=== PATIENT | female | born 1950 | race Hispanic/Latino ===

== ENCOUNTER → 2018-04-09 | Outpatient (CLI) | payer OTHER | END | disposition home or self-care (01) | LOC: RAH 09:29 | PROVIDERS: ATTEND Family Medicine | DX: Z12.31 Encounter for screening mammogram for malignant neoplasm of breast (principal) | CPT/HCPCS: 77067 ==

== ENCOUNTER → 2018-09-18 | Outpatient (CLI) | payer OTHER ==
[~2018-09-18] MED LIST: REGADENOSON 0.4 MG/5 ML PF SYG IVP SCH
== END | disposition home or self-care (01) ==
LOC: SHCH 09:03
PROVIDERS: ATTEND Internal Medicine Cardiovascular Disease
DX: R07.9 Chest pain, unspecified (principal)
CPT/HCPCS: 93017; 96374; J2785

== ENCOUNTER → 2019-07-02 | Outpatient (CLI) | payer OTHER | END | disposition home or self-care (01) | LOC: RAH 13:40 | PROVIDERS: ATTEND Family Medicine | DX: N64.4 Mastodynia (principal) | CPT/HCPCS: 77066 ==

== ENCOUNTER → 2020-07-29 | Outpatient (CLI) | payer OTHER | END | disposition home or self-care (01) | LOC: RAH 13:38 | PROVIDERS: ATTEND Family Medicine | DX: Z12.31 Encounter for screening mammogram for malignant neoplasm of breast (principal) | CPT/HCPCS: 77067 ==

== ENCOUNTER → 2021-06-03 | Outpatient (CLI) | payer OTHER ==
[~2021-06-03] VITALS: Ht 154.9 cm; Wt 71.7 kg
[2021-06-03] MEDS: REGADENOSON 0.4 MG/5 ML PF SYG IVP SCH (09:30)
== END | disposition home or self-care (01) ==
LOC: SHCH 08:59
PROVIDERS: ATTEND Internal Medicine Cardiovascular Disease
DX: R06.09 Other forms of dyspnea (principal); R07.9 Chest pain, unspecified; I10 Essential (primary) hypertension
CPT/HCPCS: 78452; 93017; 96374; A9500 ×2; J2785

== ENCOUNTER 2021-06-24 06:06 | Day surgery (SDC) | payer OTHER ==
[2021-06-22 08:51] LABS: BASOPHILS % (AUTO) 0.5 % (0.0-5.0); EOSINOPHILS % (AUTO) 2.2 % (0.0-8.0); HEMATOCRIT 41.3 % (36-48); LYMPHOCYTES % (AUTO) 24.7 % (21.0-51.0); MEAN CORPUSCULAR HEMOGLOBIN 29.5 pg (27.0-33.0); MEAN CORPUSCULAR HGB CONC 32.2 g/dL (32.0-36.0); MEAN CORPUSCULAR VOLUME 91.6 fL (79-99); NEUTROPHILS % (AUTO) 62.2 % (40.0-77.0); PLATELET COUNT (AUTO) 242 K/uL (130-400); RED BLOOD CELL COUNT(AUTO) 4.51 MIL/uL (4.00-5.50); RED CELL DISTRIBUTION WIDTH 13.5 % (11.0-15.5); WHITE BLOOD COUNT (AUTO) 7.6 K/uL (4.8-10.8)
[2021-06-22 09:00] LABS: APPEARANCE,URINE Clear (CLEAR); BILIRUBIN,URINE Negative (NEGATIVE); COLOR,URINE Yellow (YELLOW); GLUCOSE, URINE (UA) Negative (NEGATIVE); KETONES,URINE Negative (NEGATIVE); LEUKOCYTE ESTERASE ,URINE Trace (NEGATIVE); NITRATE,URINE Negative (NEGATIVE); OCCULT BLOOD,URINE Negative (NEGATIVE); PROTEIN,URINE Negative (NEGATIVE)
[2021-06-22 09:02] LABS: CREATININE 0.8 mg/dL (0.5-1.5); POTASSIUM 3.7 mmol/L (3.5-5.1)
[2021-06-22 09:08] LABS: INR 0.94 (0.85-1.15); PROTHROMBIN TIME 10.3 SEC (9.6-11.6)
[2021-06-22 09:09] LABS: PARTIAL THROMBOPLASTIN TIME 26.1 SEC (26.3-35.5)
[2021-06-22 09:17] LABS: BACTERIA,URINE Rare /HPF (None Seen); RBC,URINE None Seen /HPF (0-1); WBC,URINE 0-1 /HPF (0-1)
[2021-06-23 12:20] VITALS: BP 170/74
[~2021-06-24] VITALS: Ht 154.9 cm; Wt 72.9 kg
[2021-06-24] VITALS (13 sets, daily range): BP systolic 115–177; BP diastolic 59–85
[~2021-06-24 06:06] MED LIST changes: +0.9% NACL 500ML IV.SOLN 500 ML IV SCH; +AEC81 PO; +ATOR40TA71 PO; +LEVO75CA5 PO; +LORA-192 PO; +LOSA25TA41 PO; -REGADENOSON 0.4 MG/5 ML PF SYG IVP SCH; +[UNRECOGNIZED DRUG - OTHER] PO
[2021-06-24] MEDS ORDERED: IOHEXOL-350 50ML VIAL IV ONE (07:11)
[2021-06-24] MEDS ORDERED: IOHEXOL 350 MG/ML 100ML INFUS..BTL IV ONE (07:11)
[2021-06-24] MEDS ORDERED: HEPARIN 10,000 UNIT/10ML (1,000 UNIT/ML) VIAL ONE (07:11)
[2021-06-24] MEDS ORDERED: LIDOCAINE HCL 400MG/20ML VIAL ONE (07:12)
[2021-06-24] MEDS ORDERED: 0.9%NACL 1000ML 1,000 ML IV ONE (07:28)
[2021-06-24] MEDS ORDERED: LABETALOL 20MG VIAL IV ONE (07:41)
[2021-06-24] MEDS ORDERED: HYDRALAZINE 20MG/ML VIAL ONE (07:47)
[2021-06-24] MEDS ORDERED: 0.9%NACL 10ML VIAL IVP SCH (08:00)
[2021-06-24] MEDS ORDERED: LOSARTAN 25 MG TABLET PO SCH (08:00)
[2021-06-24] MEDS ORDERED: METOPROLOL SUCCINATE 50 MG TAB.SR.24H PO SCH (08:00)
[2021-06-24] MEDS ORDERED: ACETAMINOPHEN 325 MG TAB PO SCH (10:30)
== END 2021-06-24 16:00 | disposition home or self-care (01) ==
LOC: DAH 06:06
PROVIDERS: ATTEND Internal Medicine Cardiovascular Disease
DX: R94.39 Abnormal result of other cardiovascular function study (principal); I20.9 Angina pectoris, unspecified; I10 Essential (primary) hypertension; E78.00 Pure hypercholesterolemia, unspecified; Z79.899 Other long term (current) drug therapy; Z90.49 Acquired absence of other specified parts of digestive tract; Z98.890 Other specified postprocedural states; Z82.49 Family history of ischemic heart disease and other diseases of the circulatory system; Z72.89 Other problems related to lifestyle; Z79.01 Long term (current) use of anticoagulants
CPT/HCPCS: 36415; 71045; 80048; 81001; 85025; 85610; 85730; 93005; 93458; A4215; A4216; A4221; A4222; A4223 ×3; A4606; A4663; C1894; J0360; J1644; J3490 ×2; J7030; Q9965; Q9967 ×2

== ENCOUNTER → 2021-11-03 | Outpatient (CLI) | payer OTHER ==
[~2021-11-03] MED LIST changes: -0.9% NACL 500ML IV.SOLN 500 ML IV SCH
== END | disposition home or self-care (01) ==
LOC: RAH 10:00
PROVIDERS: ATTEND Family Medicine
DX: Z12.31 Encounter for screening mammogram for malignant neoplasm of breast (principal)
CPT/HCPCS: 77067

== ENCOUNTER → 2022-11-21 | Outpatient (CLI) | payer OTHER | END | disposition home or self-care (01) | LOC: RAH 10:35 | PROVIDERS: ATTEND Family Medicine | DX: Z12.31 Encounter for screening mammogram for malignant neoplasm of breast (principal) | CPT/HCPCS: 77067 ==

== ENCOUNTER → 2023-11-22 | Outpatient (CLI) | payer OTHER | END | disposition home or self-care (01) | LOC: RAH 08:16 | PROVIDERS: ATTEND Family Medicine | DX: Z12.31 Encounter for screening mammogram for malignant neoplasm of breast (principal); R92.0 Mammographic microcalcification found on diagnostic imaging of breast | CPT/HCPCS: 77063; 77067 ==

== ENCOUNTER → 2024-09-18 | Outpatient (CLI) | payer OTHER ==
--- NOTE | 2024-09-18 10:07 | HMCIMG ---
DIAGNOSTIC MAMMOGRAM HISTORY: MASTODYNIA COMPARISON: 11/22/2023 TECHNIQUE: Left breast digital diagnostic mammogram was performed. Focal spot compression views also were obtained. FINDINGS: Parenchymal density: The breasts are heterogeneously dense, which may obscure small masses. There is poorly defined increasing parenchymal density in the upper outer quadrant of the left breast. This measures approximately 3 cm in size and persists on focal spot compression views. Findings are suspicious for an underlying focal mass lesion. Ultrasound is recommended for further evaluation. If ultrasound is negative then an MRI scan should BE considered There are no other focal mass lesions. There are no pathologic appearing calcifications. There is no evidence of nipple retraction or skin thickening. IMPRESSION: 1. Increasing prominence of a 3 cm density upper outer quadrant left breast, 5 cm posterior and superior to the nipple, the this persists on focal spot compression views and could represent poorly defined mass. 2. Ultrasound recommended for further evaluation. 3. MRI scan would be indicated if the ultrasound is negative for an underlying mass lesion. The patient was entered into a reminder system with a target due date for their next mammogram. BI-RADS CATEGORY 0: INCOMPLETE. NEED ADDITIONAL IMAGING EVALUATION Recommend monthly self breast exam as well as annual clinical examination. A negative x-ray should not delay biopsy if a dominant or clinically suspicious mass is present, since 8-10% of cancers are not identified by mammography. Dense breasts particularly, may obscure an underlying neoplasm. Some of these may be detected clinically and therefore, clinical examination is an essential part of breast evaluation.
== END | disposition home or self-care (01) ==
LOC: RAH 08:30
PROVIDERS: ATTEND Family Medicine
DX: R92.333 Mammographic heterogeneous density, bilateral breasts (principal); N64.4 Mastodynia; R92.30 Dense breasts, unspecified
CPT/HCPCS: 77065

== ENCOUNTER → 2024-10-03 | Outpatient (CLI) | payer OTHER ==
--- NOTE | 2024-10-03 11:36 | HMCIMG ---
US BREAST COMPLETE UNILATERAL REASON: UNSPECIFIED LUMP ON BREAST LT COMPARISON: Diagnostic mammogram 09/18/2024 TECHNIQUE: Left breast ultrasound was performed and compared with the recent mammogram. FINDINGS: There is an irregular 1.4 x 3.6 cm sonolucent but solid mass corresponding with the mammographic abnormality. Findings are suspicious for neoplasm and biopsy is recommended. This lesion is amenable to ultrasound-guided core biopsy. There is a 1.4 cm subareolar cyst. There are 2 additional subcentimeter cysts. There are no other solid masses. There are some prominent lymph nodes in the axilla, largest 2.2 cm. IMPRESSION: 1. 2.6 cm spiculated mass 1:00 position of the left breast appears suspicious for neoplasm, this corresponds with the mammographic abnormality. 2. No additional suspicious focal lesions in the breast. 3. Prominent lymph nodes in the axilla largest 2.2 cm.
== END | disposition home or self-care (01) ==
LOC: RAH 10:09
PROVIDERS: ATTEND Family Medicine
DX: N60.02 Solitary cyst of left breast (principal); N63.20 Unspecified lump in the left breast, unspecified quadrant; N63.21 Unspecified lump in the left breast, upper outer quadrant
CPT/HCPCS: 76641

== ENCOUNTER → 2025-01-15 | Outpatient (CLI) | payer OTHER ==
[~2025-01-15] MED LIST changes: -LEVO75CA5 PO; +LEVO75CA6 PO
--- NOTE | 2025-01-17 08:47 | HMCIMG ---
US BREAST COMPLETE UNILATERAL REASON: BREAST CA. COMPARISON: 10/03/2024 TECHNIQUE: Left breast ultrasound study was performed. FINDINGS: There is left breast mass with spiculated border at 1:00 of left breast measuring 3 x 0.7 x 1.1 cm. This was biopsied recently with pathologic findings suggestive of breast cancer. There is hypoechoic nodule at 8:00 of left breast with complex echogenicity measuring 7 x 4 x 8 mm. There is subareolar cyst in the left breast measuring 12 mm. There is left axillary lymph node measuring 15 mm. IMPRESSION: Left breast cancer at 1:00 which was biopsied previously. There is left breast nodule at 8:00 measuring 8 mm. CATEGORY 5: HIGHLY SUGGESTIVE OF MALIGNANCY, biopsy was done recently. Recommend monthly self breast exam as well as annual clinical examination.
== END | disposition home or self-care (01) ==
LOC: RAH 11:23
PROVIDERS: ATTEND Surgery
DX: C50.612 Malignant neoplasm of axillary tail of left female breast (principal)
CPT/HCPCS: 76641